=== PATIENT | male | born 1970 ===

== ENCOUNTER 2019-06-18 07:14 | Day surgery (SDC) | payer OTHER ==
[~2019-06-18 07:14] MED LIST: LISINOPRIL20 MG PO; TOPROL XL50 M1 PO
== END 2019-06-18 14:15 | disposition home or self-care (01) ==
LOC: CIR.AMB 07:14 → AMB-ENDOS 08:45 → CIR.AMB 14:15
DX: C67.6 Malignant neoplasm of ureteric orifice (principal)